=== PATIENT | male | born 1980 | race Caucasian/White ===

== ENCOUNTER 2023-12-30 12:57 | Outpatient (CLI) | payer BC, SELFPAY | END 2023-12-30 12:58 | disposition home or self-care (01) | LOC: AMB 01-13 02:50 | PROVIDERS: PCP Family Medicine; Visit Provider Family Medicine | DX: R41.82 Altered mental status, unspecified (principal); F10.129 Alcohol abuse with intoxication, unspecified | CPT/HCPCS: A0425; A0429 ==

== ENCOUNTER 2023-12-30 13:33 | Emergency (ER) | payer BC, SELFPAY ==
[2023-12-30] VITALS (18 sets, daily range): BP systolic 155–158; BP diastolic 69–109; PULSE 87–114; RESP 18–28; O2SAT 86–99; BMI 38.0
[2023-12-30 14:06] LABS: Lactate* 3.9 mmol/L (0.5-1.9)
[2023-12-30 14:07] LABS: Basophils Absolute Auto 0.05 K/uL (0.00-0.30); Basophils Percent Auto 0.7 % (0.0-3.0); Eosinophils Absolute Auto 0.14 K/uL (0.00-0.50); Eosinophils Percent Auto 2.1 % (0.0-7.0); Hematocrit* 42.3 % (37.0-53.0); Hemoglobin* 14.3 gm/dL (13.5-17.5); Immature Granulocytes Abs Auto 0.02 K/uL (0.00-0.30); Immature Granulocytes Pct Auto 0.3 %; Lymphocytes Absolute Auto 2.31 K/uL (0.90-2.90); Mean Corpuscular HGB Conc 34 gm/dL (32-36); Mean Corpuscular Hemoglobin 29 pg (26-34); Mean Corpuscular Volume 85 fL (80-100); Monocytes Percent Auto 5.4 % (0.0-11.0); Neutrophils Absolute Auto 3.91 K/uL (1.7-7.0); Neutrophils Percent Auto 57.5 % (42.0-72.0); Platelet Count* 182 K/uL (140-440); RDW Coefficient of Variation % 13.7 % (11.5-15.5); Red Blood Count* 4.97 m/uL (4.30-5.90)
[2023-12-30 14:14] LABS: Slide Review Reflex No
[2023-12-30] MEDS: LORazepam 2 MG/ML inj 1 MG IVP (14:17)
--- NOTE | 2023-12-30 14:23 | ED_ITS ---
HPI - General Adult General Chief complaint: Altered Mental Status Stated complaint: ETOH Time Seen by Provider: 12/30/23 13:42 Source: patient, family and EMS Mode of arrival: EMS Limitations: altered mental status History of Present Illness HPI narrative: The patient is a 43-year-old male with a history of alcohol use disorder presenting today with acute alcohol intoxication after he was found unconscious on his front lawn. Neighbors called 911. According to EMS they had a difficult time waking him up and once he was awake he had a difficult time ambulating. He has been combative and arrives to the emergency room in 4 point restraints. Past medical history is significant for alcohol use disorder, narcotic use disorder, anxiety, depression, obesity, gout, hyperlipidemia. He has no known drug allergies. Patient is . According to his they have been going through his alcohol use disorder for the last 6 years he was in [facility] for the last 10 months and has been home for 24 days. states that he has also been drinking Kratom - unclear how much she has been drinking per day. Patient and both deny him ever having any withdrawal seizures or DTs. The patient tells me that he ?fucked up?. He denies being in pain. He states that he had ?a little bit to drink this morning?. He cannot quantify what that means. Related Data Home Medications ?Medication ?Instructions ?Recorded ?Confirmed buspirone 15 mg tablet 15 mg PO BID 12/09/21 12/09/21 paroxetine HCl 20 mg tablet 20 mg PO .Bedtime 12/09/21 12/09/21 Previous Rx's ?Medication ?Instructions ?Recorded allopurinol 300 mg tablet 300 mg PO DAILY #90 tabs 12/09/21 buspirone 30 mg tablet 30 mg PO BID #180 tabs 12/09/21 naltrexone 50 mg tablet 50 mg PO QDAY #90 tabs 12/09/21 paroxetine HCl 40 mg tablet 40 mg PO QDAY #90 tabs 12/09/21 indomethacin 50 mg capsule 50 mg PO TID PRN gout #30 caps 01/03/23 Allergies Allergy/AdvReac Type Severity Reaction Status Date / Time No Known Allergy Allergy Unknown unknown Uncoded 12/09/21 08:53 Review of Systems Status of ROS: Reports: 6 or more systems reviewed and unremarkable except as noted in History and below [facility] Medical History Narcotic abuse ?F11.10 - Opioid abuse, uncomplicated (ICD-10) Surgical History Status post appendectomy ?Z90.49 - Acquired absence of other specified parts of digestive tract (ICD- 10) Family History Other Diabetes Social History Smoking Status: Current some day smoker How often do you have a drink containing alcohol: 4 or more times a week AUDIT-C Alcohol total score: 4 Exam Narrative: Exam Narrative: Obese patient, somewhat uncooperative but he can be coaxed into cooperation intermittently and for short amount of time. He is clearly intoxicated. His speech is slurred. Eyes are glassy. The patient sexually inappropriate calling the female staff ?hot? and trying to grab their buttocks. Patient's clothes are covered in grass. HEENT: Normocephalic atraumatic. Pupils are sluggish to respond. Extraocular muscles are intact. Conjunctivae are moist without any icterus noted. Moist mucous membranes. Posterior pharynx is normal. Neck is soft. Cardiovascular: Heart is regular rate and rhythm S1 and S2 are present without any murmurs. Lungs: Clear to auscultation bilaterally no wheezes rhonchi or rales are appreciated. Patient takes deep breaths without any discomfort. Abdomen: Soft and nontender nondistended with normal bowel sounds. Difficult to assess for organomegaly secondary to body habitus. Extremities: Bilateral lower extremities are without edema. Skin: Well perfused , warm and dry. Const: Vital Signs, click to edit/add: Vital Signs - 24 hr 12/30/23 13:45 12/30/23 15:23 12/30/23 15:25 Pulse Rate [Left P ulse Oximeter] 87 112 H Respiratory Rate 22 28 H Blood Pressure [Le ft Upper Arm] 158/69 H Pulse Oximetry 92 90 90 Oxygen Delivery Me thod Room Air OxyMask Room Air Oxygen Flow Rate 5 12/30/23 15:38 Pulse Rate [Left P ulse Oximeter] 114 H Respiratory Rate 26 H Blood Pressure [Le ft Upper Arm] Pulse Oximetry 93 Oxygen Delivery Me thod OxyMask Oxygen Flow Rate 5 Course Course ED Course: Patient received a mg of IV Ativan this did not change his behavior. Zyprexa 5 mg IV was also given. 0.5 L of normal saline was started. Labs were drawn: Blood alcohol level is 0.38. Urine drug screen is negative. CBC is normal. Chemistries are unremarkable. Glucose is elevated at 253. Lactate elevated at 3.9 LFTs slightly elevated. Normal troponin and CRP. UA with 1+ glucose. COVID influenza negative Another L of normal saline was started. Patient asleep with above treatment. He will detox for a while in the emergency department and then likely transfer to proper detox versus home. Care transferred to oncoming physician at this time. Vital Signs Vital signs: Initial Vital Signs Pulse Rate 87 12/30/23 13:45 Pulse Rhythm Regular 12/30/23 13:45 Pulse Strength 3+ Normal 12/30/23 13:45 Respiratory Rate 22 12/30/23 13:45 Blood Pressure 158/69 H 12/30/23 13:45 Blood Pressure Mean 98 12/30/23 13:45 Blood Pressure Position Semi-Fowlers 12/30/23 13:45 Pulse Oximetry 92 12/30/23 13:45 Oxygen Delivery Method Room Air 12/30/23 13:45 Vital Signs Pulse Rate 87 12/30/23 13:45 Respiratory Rate 22 12/30/23 13:45 Blood Pressure 158/69 H 12/30/23 13:45 Pulse Oximetry 92 12/30/23 13:45 Oxygen Delivery Method Room Air 12/30/23 13:45 Pulse Rate 87 12/30/23 20:45 Respiratory Rate 18 12/30/23 20:45 Blood Pressure 155/109 H 12/30/23 20:45 Pulse Oximetry 97 12/30/23 20:45 Oxygen Delivery Method Room Air 12/30/23 19:05 Oxygen Flow Rate 5 12/30/23 15:38 Medications Administered Medications: Discontinued Medications Generic Name Dose Route Start Last Admin Trade Name Freq PRN Reason Stop Dose Admin Sodium Chloride 500 mls @ 500 mls/hr 12/30/23 13:42 12/30/23 15:37 0.9 % Sodium Chloride 500 Ml IV 12/30/23 14:41 Infused .Q1H ONE Infusion Sodium Chloride 1,000 mls @ 1,000 mls/hr 12/30/23 15:15 12/30/23 16:15 0.9 % Sodium Chloride 1000 Ml IV 12/30/23 16:14 Infused .Q1H MALCOLM Infusion Lorazepam 1 mg 12/30/23 13:42 12/30/23 14:17 Lorazepam 2 Mg/Ml Inj IVP 1 mg Q1H PRN Administration Olanzapine 5 mg 12/30/23 14:33 12/30/23 14:43 Olanzapine 5 Mg/Ml Inj IVP 12/30/23 14:34 5 mg ONCE ONE Administration Medical Decision Making Lab Data Labs: Lab Results 12/30/23 12/30/23 12/30/23 Range/Units 14:00 14:30 15:05 WBC 6.80 (4.50-11.00) K/uL RBC 4.97 (4.30-5.90) m/uL Hgb 14.3 (13.5-17.5) gm/dL Hct 42.3 (37.0-53.0) % MCV 85 (80-100) fL MCH 29 (26-34) pg MCHC 34 (32-36) gm/dL RDW Coeff of Karen 13.7 (11.5-15.5) % Plt Count 182 (140-440) K/uL Neut % (Auto) 57.5 (42.0-72.0) % Lymph % (Auto) 34.0 (20-44) % [place] % (Auto) 5.4 (0.0-11.0) % Eos % (Auto) 2.1 (0.0-7.0) % Baso % (Auto) 0.7 (0.0-3.0) % Neut # (Auto) 3.91 (1.7-7.0) K/uL Lymph # (Auto) 2.31 (0.90-2.90) K/uL [place] # (Auto) 0.40 (0.00-0.90) K/UL Eos # (Auto) 0.14 (0.00-0.50) K/uL Baso # (Auto) 0.05 (0.00-0.30) K/uL Abs Immat Gran (auto) 0.02 (0.00-0.30) K/uL Imm/Tot Granulo (auto) 0.3 % Sodium 138 (135-149) mmol/L Potassium 3.8 (3.6-5.1) mmol/L Chloride 105 (96-114) mmol/L Carbon Dioxide 19 L (20-32) mmol/L Anion Gap 14 (7-15) mEq/L BUN 13 (5-24) mg/dL Creatinine 0.8 (0.5-1.5) mg/dL Estimated Creat Clear 129.33 Estimated GFR 112 ml/min Glucose 253 H (60-115) mg/dL Lactate 3.9 H (0.5-1.9) mmol/L Calcium 8.6 (8.4-10.6) mg/dL Magnesium 2.3 (1.5-2.6) mg/dL Total Bilirubin 0.4 (0.1-1.5) mg/dL Direct Bilirubin 0.1 (0.0-0.5) mg/dL AST 63 H (12-35) U/L ALT 79 H (4-50) U/L Alkaline Phosphatase 77 (40-150) U/L Troponin I < 0.01 L (0.01-0.04) ng/mL C-Reactive Protein < 0.5 L (0.5-1.0) mg/dL Total Protein 7.5 (6.0-8.3) g/dL Albumin 4.6 (3.3-5.0) g/dL Urine Color Yellow (Yellow) Urine Appearance Clear (Clear) Urine pH 5.5 (5.0-8.5) Ur Specific [place] <= 1.005 (1.000-1.030) Urine Protein Negative (Negative) Urine Glucose (UA) 1+ A (Negative) Urine Ketones Negative (Negative) Urine Blood Negative (Negative) Urine Nitrite Negative (Negative) Urine Bilirubin Negative (Negative) Urine Urobilinogen 0.2 (0.2-1.0) Ur Leukocyte Esterase Negative (Negative) Urine RBC 0-2 (0-2) Urine WBC 0-2 (0-5) Ur Squamous Epith Cells Few (None-Few) Urine Bacteria None (None) Urine Opiates Screen Negative (Negative) Ur Oxycodone Screen Negative (Negative) Urine Methadone Screen Negative (Negative) Acetaminophen < 10.0 L (10.0-30.0) ug/mL Ur Barbiturates Screen Negative (Negative) U Tricyclic Antidepress Negative (Negative) Ur Phencyclidine Scrn Negative (Negative) Ur Amphetamines Screen Negative (Negative) U Methamphetamines Scrn Negative (Negative) U Benzodiazepines Scrn Negative (Negative) Urine Cocaine Screen Negative (Negative) U Marijuana (THC) Screen Negative (Negative) Ur Drug Screen Comment See Note Ethyl Alcohol 0.38 H* (0.01-0.03) % SARS-CoV-2 (PCR) Negative SARS-CoV-2 (Negative) Influenza Type A (PCR) Negative PCR FLU A (Negative) Influenza Type B (PCR) Negative PCR FLU B (Negative) Discharge Plan Discharge Clinical Impression: Acute alcohol intoxication, Alcohol use disorder, Hyperglycemia Additional Instructions: Your blood sugar was elevated today. This likely means that you have developed diabetes. You will need to follow-up with your primary care provider this week to have a blood sugar rechecked and to probably start on medications. Prescriptions: No Action buspirone 15 mg tablet 15 mg PO BID paroxetine HCl 20 mg tablet 20 mg PO .Bedtime paroxetine HCl 40 mg tablet 40 mg PO QDAY Qty: 90 3RF buspirone 30 mg tablet 30 mg PO BID Qty: 180 2RF naltrexone 50 mg tablet 50 mg PO QDAY Qty: 90 3RF allopurinol 300 mg tablet 300 mg PO DAILY Qty: 90 3RF indomethacin 50 mg capsule 50 mg PO TID PRN (Reason: gout) Qty: 30 0RF Follow Up/Referrals: Anibal Vargas MD [Primary Care Provider] -
[2023-12-30 14:26] LABS: Albumin* 4.6 g/dL (3.3-5.0)
[2023-12-30 14:27] LABS: Chloride* 105 mmol/L (96-114); Sodium* 138 mmol/L (135-149)
[2023-12-30 14:28] LABS: Potassium* 3.8 mmol/L (3.6-5.1)
[2023-12-30 14:29] LABS: Creatinine* 0.8 mg/dL (0.5-1.5); Est. Creatinine Clearance* 129.33; Estimated Glomerular Filt Rate 112 ml/min
[2023-12-30 14:30] LABS: Alanine Aminotransferase* 79 U/L (4-50); Alkaline Phosphatase* 77 U/L (40-150); Anion Gap 14 mEq/L (7-15); Aspartate Amino Transferase* 63 U/L (12-35); Bilirubin Direct* 0.1 mg/dL (0.0-0.5); Bilirubin Total* 0.4 mg/dL (0.1-1.5); Blood Urea Nitrogen* 13 mg/dL (5-24); Calcium* 8.6 mg/dL (8.4-10.6); Carbon Dioxide* 19 mmol/L (20-32); Glucose* 253 mg/dL (60-115); Total Protein* 7.5 g/dL (6.0-8.3)
[2023-12-30 14:31] LABS: Magnesium* 2.3 mg/dL (1.5-2.6)
[2023-12-30 14:42] LABS: Appearance Urine Clear (Clear); Bilirubin Urine Negative (Negative); Blood Urine Negative (Negative); Color Urine Yellow (Yellow); Glucose Urine 1+ (Negative); Ketones Urine Negative (Negative); Leukocyte Esterase Urine Negative (Negative); Nitrite Urine Negative (Negative); Protein Urine Negative (Negative); Specific Gravity Urine <= 1.005 (1.000-1.030); Urobilinogen Urine 0.2 (0.2-1.0); pH Urine 5.5 (5.0-8.5)
[2023-12-30] MEDS: OLANZapine 5 MG/ML inj IVP (14:43)
[2023-12-30 14:47] LABS: Acetaminophen* < 10.0 ug/mL (10.0-30.0); C Reactive Protein* < 0.5 mg/dL (0.5-1.0); Troponin I* < 0.01 ng/mL (0.01-0.04)
[2023-12-30 14:48] LABS: Ethanol* 0.38 % (0.01-0.03)
[2023-12-30 14:49] LABS: Amphetamine Screen Urine Negative (Negative); Barbiturate Screen Urine Negative (Negative); Benzodiazepines Screen Urine Negative (Negative); Cannabinoid Screen Urine Negative (Negative); Cocaine Screen Urine Negative (Negative); Methadone Screen Urine Negative (Negative); Methamphetamines Screen Urine Negative (Negative); Opiate Screen Urine Negative (Negative); Oxycodone Screen Urine Negative (Negative); Phencyclidine Screen Urine Negative (Negative); Tricyclic Antidepressant Urine Negative (Negative)
[2023-12-30 14:58] LABS: RBC Urine 0-2 (0-2); Squamous Epithelial Cell Urine Few (None-Few); WBC Urine 0-2 (0-5)
[2023-12-30] MEDS: 0.9 % SODIUM CHLORIDE 500 ML 500 ML IV (15:21)
[2023-12-30] MEDS: 0.9 % SODIUM CHLORIDE 1000 ml 1,000 ML IV (15:37)
[2023-12-30 15:50] LABS: PCR FLU A Negative PCR FLU A (Negative); PCR FLU B Negative PCR FLU B (Negative); SARS PCR* Negative SARS-CoV-2 (Negative)
--- NOTE | 2023-12-30 20:36 | ED.NURSE ---
This nurse walked pt to the bathroom, pt coherent and talking in complete sentences. Pt's called and she is coming to the hospital to pick him up and take him home. Pt will be released to 's care at home. Pt's IV was removed and pt is waiting to be picked up at this time. Pt did tell this nurse that he is not going to fucking detox. Detox was offered again, but pt states I'm not going. This nurse informed doctor he is refusing detox at this time.
== END 2023-12-30 20:45 | disposition home or self-care (01) ==
LOC: ED 14:08
PROVIDERS: Emergency Provider Family Medicine; PCP Family Medicine
DX: F10.129 Alcohol abuse with intoxication, unspecified (principal); R73.9 Hyperglycemia, unspecified
CPT/HCPCS: 36415; 80048; 80076; 80143; 80306; 81001; 82077; 83605; 83735; 84484; 85025; 86140; 87637; 93005; 94761; 96374; 99284; 99285; J2060; J7030

== ENCOUNTER 2024-11-09 17:36 | Emergency (ER) | payer BC, SELFPAY ==
--- OUTSIDE RECORDS SUMMARY | 2024-11-09 17:37 | XMS_ITS | Clinical Summary ---
Author Organization [facility] Address [address] [place] [id number] Care Team Providers Care Assembler Seat Name Role Phone Anibal Vargas MD Primary Care Provider [phone] Allergies No known active allergies Medications ketoconazole 2% shampoo (NIZORAL) 2 % shampoo APPLY TO THE AFFECTED AREA(S), LATHER, LEAVE IN PLACE FOR 5 MINUTES, AND THEN RINSE OFF WITH WATER BY TOPICAL ROUTE ONCE DAILY 0 07/10/2018 Active PARoxetine (PAXIL) 20 mg tablet Take 1 tablet by mouth every morning. 0 02/10/2019 Active atorvastatin (LIPITOR) 20 mg tablet Take 1 tablet by mouth at bedtime. 0 02/10/2019 Active doxylamine (UNISOM) 25 mg tabletIndicatio ns:Insomnia, idiopathic Take 2 tablets by mouth at bedtime if needed for Sleep. 60 tablet 02/10/2019 Active ibuprofen (ADVIL; MOTRIN) 800 mg tabletIndicatio ns:Acute pain of right knee Take 1 tablet by mouth 3 times daily if needed. 30 tablet 02/17/2019 Active Active Problems Problem Noted Date Diagnosed Date Alcoholism Hypercholesteremia Depression Resolved Problems Problem Noted Date Diagnosed Date Resolved Date Chemical dependency 02/10/2019 02/11/20 19 Immunizations Immunization Administration Dates Next Due DTaP 07/05/1982,1979,1979 ,1979 MMR 08/03/1981 Polio Virus, Unspecified 07/05/1982,1979,0 1979 Tdap 07/24/2014 Family History Medical History Relation Name Comments Alcoholism Father Alcoholism Mother Relation Name Status Comments Father Mother Social History Tobacco Use Types Packs/Day Years Used Date Smoking Tobacco: Every Day Cigarettes Started: 03/12/1998 Smokeless Tobacco: Never Tobacco Cessation:Ready to Q uit: No; Counseling Given: Yes Alcohol Use Standard Drinks/Week Comments Not Currently 0 (1 standard drink = 0.6 oz pure alcohol) History of alcoholism; last use 01/13/2019 Sex and Gender Information Value Date Recorded Sex Assigned at Not on file Legal Sex Male 1:41 PM [employer] Gender Identity Not on file Sexual Orientation Not on file Occupation Industry Job Start Date Job End Date [employer] at a [employer] Not on file Not on file Not on file Obstetrics History Last Filed Vital Signs Vital Sign Reading Time Taken Comments Blood Pressure 114/78 02/17/2019 2:45 PM [employer] Pulse 84 02/17/2019 2:45 PM [employer] Temperature - - Respiratory Rate 16 02/17/2019 2:45 PM [employer] Oxygen Saturation 96% 02/10/2019 1:24 PM [employer] Inhaled Oxygen Concentration - - Weight 127.9 kg (282 lb) 02/17/2019 2:45 PM [employer] Height 177.8 cm (5' 10) 02/17/2019 2:45 PM [employer] Body Mass Index 40.46 02/17/2019 2:45 PM [employer] Plan of Treatment Health Maintenance Due Date Last Done Comments Depression screening for age 12+ 1991 HIV for age 15-65 1994 Hepatitis C screening for ag e 18-79 1997 Hepatitis B series for 19+ ( 1 of 3 - 19+ 3-dose series) 1998 BMI (ht and wt on same day) for age 18+ 02/18/2020 02/17/2019, 02/10/2019 COVID-19 vaccine series (2023- season) 2023 Colonoscopy through age 75 2024 Lipids for age 45-75 2024 Tetanus booster 07/24/2024 07/24/2014 Influenza Vaccine (#1) 2024 Pneumococcal series for age 6-49 Aged Out No longer eligible b ased on patient's age to complete this topic Insurance MEDICAID [facility] * Guarantor: [employer] Account Type Relation to Patient Date of Phone Billing Address [email or web address] Other [address] [place] [address] Care Teams Assembler Seat Relationship Specialty Start Date End Date Anibal Vargas MD PCP - General Family Practice 02/10/19
--- OUTSIDE RECORDS SUMMARY | 2024-11-09 17:38 | XMS_ITS | Clinical Summary ---
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 Try to take as soon as a gout flair starts, then take for one week. Take with food or milk. 60 Capsule 3 3 Active triamcinolone acetonide (Kenalog) 0.1 % creamIndication s:Skin irritation Apply topically two times a day. 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 TAKE 1 TABLET BY MOUTH ONCE DAILY 90 Tablet 2 4 Active Active Problems Problem Noted Date Diagnosed Date Class 3 severe obesity due t o excess calories without serious comorbidity with body mass index (BMI) of 40.0 to 44.9 in adult 07/20/2022 Type 2 diabetes mellitus wit hout complication, without long-term current use of insulin 06/26/2022 Seborrheic dermatitis of scalp 02/24/2022 Tobacco abuse, in remission 02/24/2022 Alcohol addiction 02/24/2022 Resolved Problems Problem Noted Date Diagnosed Date Resolved Date Weakness 2022 10/04/2022 Impaired mobility 2022 10/04/2022 Tear of medial meniscus of r ight knee, unspecified tear type, unspecified whether old or current tear, initial encounter 2022 0 10/04/2022 Chronic pain of right knee 03/10/2022 0 10/04/2022 Immunizations Immunization Administration Dates Next Due DTaP <7 years 07/05/1982,1979,1979 ,1979 Hepatitis A & B 04/10/2022,02/24/2022 Hepatitis B, Adult 02/16/2023 MMR 08/03/1981 Polio Unspecified Formulation 07/05/1982, 980,1979 Tdap (7 years and older) 07/24/2014 Surgical History Surgery Date Site/Laterality Comments APPENDECTOMY 1994 Medical History Medical History Date Comments Alcohol addiction (HCC) Anxiety disorder Seborrheic dermatitis Gout Tobacco use disorder Family History Medical History Relation Comments Addiction Brother Addiction Father Diabetes Maternal Grandfather Addiction Mother Diabetes Mother Addiction Sister Relation Status Comments Brother Father Maternal Grandfather Mother Sister Social History Tobacco Use Types Packs/Day Years Used Date Smoking Tobacco: Former Cigarettes Passive Smoke Exposure: Past Smokeless Tobacco: Never Tobacco Cessation:Counseling Given: Not Answered Alcohol Use Standard Drinks/Week Comments Not Currently 0 (1 standard drink = 0.6 oz pur e alcohol) History of alcohol addiction Overall Financial Resource Strain (CARDIA) Answe r Date Recorded How hard is it for you to pa y for the very basics like food, housing, medical care, and heating? Not hard at all 02/16/2023 PHQ-2 Answer Date Recorded PHQ-2 Total 0 03/10/2022 Hunger Vital Sign Answer Date Recorded Within the past 12 months, y ou worried that your food would run out before you got the money to buy more. Never true 02/17/20 23 Within the past 12 months, t he food you bought just didn't last and you didn't have money to get more. Never true 02/16/2023 PRAPARE - Transportation Answer Date Re corded In the past 12 months, has l ack of transportation kept you from medical appointments or from getting medications? No 10/2022 In the past 12 months, has l ack of transportation kept you from meetings, work, or from getting things needed for daily living? No 02/16/2023 [facility] [employer]) Answer Date Recorded How hard is it for you to pa y for the very basics like food, housing, medical care, and heating? 5 02/16/2023 Sex and Gender Information Value Date Recorded Sex Assigned at Not on file Legal Sex Male 2:01 PM [employer] Gender Identity Not on file Sexual Orientation Not on file Obstetrics History Last Filed Vital Signs Vital Sign Reading Time Taken Comments Blood Pressure 115/79 07/30/2023 9:27 AM CDT Pulse 80 07/30/2023 9:27 AM CDT Temperature 36.6 C (97.8 F) 07/30/2023 9:27 AM CDT Respiratory Rate 16 06/24/2023 2:30 PM CDT Oxygen Saturation 96% 07/30/2023 9:27 AM CDT Inhaled Oxygen Concentration - - Weight 148.3 kg (327 lb) 07/30/2023 9:27 AM CDT Height 177.8 cm (5' 10) 07/30/2023 9:27 AM CDT Body Mass Index 46.92 07/30/2023 9:27 AM CDT Plan of Treatment Health Maintenance Due Date Last Done Comments CT Colonography 1979 Cologuard 1979 Colonoscopy 1979 Colorectal Cancer Screening 1979 FIT/FOBT 1979 Sigmoidoscopy 1979 DIABETIC EYE EXAM 1997 Pneumococcal/PCV20 Vaccine: Pediatrics (2-5 yrs) and At-Risk Patients (6-49 yrs) (Standing Order) (1 of 2 - PCV) 1998 DIABETES HGB A1C Q6 MONTHS (Standing Order) 08/18/2023 02/16/2023, 06/26/2022, 02/21/2022 DIABETES MICROALBUMIN Q1 YEAR (Standing Order) 01/17/2024 02/16/2023 DIABETES SERUM CREATININE Q1 YEAR (Standing Order) 02/17/2024 02/16/2023, 10/13/2022, 10/13/2022, Additional history exists TETANUS (Standing Order) 07/24/2024 015, 07/05/1982, 1979, Additional history exists DIABETES LIPID PROFILE Q5 YEARS (Standing Order) 06/27/2027 06/26/2022 PERTUSSIS (Standing Order) Completed 07/24, 07/05/1982, 1979, Additional history exists Hepatitis B Vaccine (Standing Order) Completed 02/16/2023, 04/10/2022, 02/24/2022 HPV Vaccine (Standing Order) Aged Out No longer eligible based on patient's age to complete this topic Procedures Procedure Name Priority Date/Time Associated Diagnosis Comments MICROALBUMIN/CREATININ E RATIO, URINE Routine 02/16/2023 9:27 AM [employer] Type 2 diabetes mellitus without complication, without long-term current use of insulin (HCC) HEMOGLOBIN A1C Routine 02/16/2023 9:20 AM [employer] Type 2 diabetes mellitus without complication, without long-term current use of insulin (HCC) COMPREHENSIVE METABOLIC PANEL Routine 02/16/2023 9:20 AM [employer] Class 3 severe obesity due to excess calories with serious comorbidity and body mass index (BMI) of 40.0 to 44.9 in adult (HCC) LIPID PROFILE Routine 06/26/2022 8:51 AM CDT Weight gain from Last 3 Months or Most Recently Relevant to Health Maintenance Results * MICROALBUMIN/CREATININE RATIO, URINE (02/16/2023 9:27 AM [facility]) Urine Microalbumin/Crea tinine Ratio <5 0 - 29 02/16/2023 12:41 PM [facility] Comment:If the ALB/CREAT rat io has a < result, the urine microalbumin was below the linearity of the analyzer before the calculation was performed. This situation represents a normal alb/creat ratio. Please contact lab with questions on the linear range. Urine Creatinine, Random 95 mg/dL 02/16/2023 12:41 PM [facility] Urine Microalbumin <0.5 mg/dL 02/16/2023 12:41 PM [facility] Urine VOIDED URINE SPECIMEN / Unknown Non-blood collection / Unknown 02/16/2023 9:27 AM [facility] [facility] 02/16/2023 9:27 AM [facility] Praveena Miner MD EC URINE ORDERABLES Final Result [facility] [address] [place] [address], [facility] * (ABNORMAL) COMPREHENSIVE METABOLIC PANEL (02/16/2023 9:20 AM [facility]) Sodium 136 134 - 143 mEq/L 02/16/2023 12:42 PM [facility] Potassium 4.4 3.4 - 5.1 mEq/L 02/16/2023 12:42 PM [facility] Chloride 104 99 - 110 mEq/L 02/16/2023 12:42 PM [facility] Carbon Dioxide 24 19 - 29 mEq/L 02/16/2023 12:42 PM [facility] Anion Gap 8.0 3.0 - 15.0 mEq/L 02/16/2023 12:42 PM [facility] Blood Urea Nitrogen 20 5 - 24 mg/dL 02/16/2023 12:42 PM [facility] Creatinine 0.93 0.70 - 1.20 mg/dL 02/16/2023 12:42 PM [facility] Glomerular Filtration Rate 104 >60 mL/min/1. 73 m*2 02/16/2023 12:42 PM [facility] Comment:Risk of cardiovascul ar disease increases when GFR is abnormal; persistently reduced GFR values are a specific indication of CKD. This calculation uses CKD- EPI 2020 equation without adjustment for race; it has not been validated in women. Calcium 9.9 8.4 - 10.5 mg/dL 02/16/2023 12:42 PM [facility] Glucose 111(H) 70 - 99 mg/dL 02/16/2023 12:42 PM [facility] Protein, Total 8.0 6.0 - 8.0 g/dL 02/16/2023 12:42 PM [facility] Albumin 4.0 3.5 - 5.0 g/dL 02/16/2023 12:42 PM [facility] Alkaline Phosphatase 67 40 - 150 IU/L 02/16/2023 12:42 PM [facility] Aspartate Aminotransferase 64(H) 10 - 40 IU/L 02/16/2023 12:42 PM [facility] Alanine Aminotransferase 65(H) 6 - 40 IU/L 02/16/2023 12:42 PM [facility] Bilirubin, Total 0.3 0.2 - 1.2 mg/dL 02/16/2023 12:42 PM [facility] Blood BLOOD SPECIMEN / Unknown Venipuncture / Unknown 02/16/2023 9:20 AM [facility] [employer] [facility] 02/16/2023 9:20 AM [facility] Narrative [facility] - 02/16/2023 12:42 PM [facility] Current ADA criteria for Glucose: Normal: 70-99 mg/dL Impaired Fasting Glucose: 100-125 mg/dL Diabetes Mellitus: at or above 126 mg/dL The diagnosis of diabetes must be confirmed on a subsequent day by measuring Fasting Plasma Glucose, 2-hr PG or random plasma glucose (if symptoms are present). Praveena Miner MD EC CHEMISTRY ORDERABLES Fi nal Result Performing Organization Address [facility] de Phone Number [facility] [address] * (ABNORMAL) HEMOGLOBIN A1C (02/16/2023 9:20 AM [facility]) [facility] Hemoglobin A1c 5.7(H) 4.0 - 5.6 % 02/16/2023 9:40 AM [facility] Estimated Average Glucose 117 mg/dL 02/16/2023 9:40 AM [facility] Blood BLOOD SPECIMEN / Unknown Venipuncture / Unknown 02/16/2023 9:20 AM [facility] [employer] [facility] 02/16/2023 9:20 AM [facility] Narrative [facility] - 02/16/2023 9:40 AM [facility] HGA1C Reference Ranges >= 6.5 Diabetes* 5.7-6.4 Impaired glucose tolerance <5.7 Normal *In the absence of unequivocal hyperglycemia, results should be confirmed by repeat testing for the diagnosis of diabetes. [place] [employer] 2018 Praveena Miner MD EC CHEMISTRY ORDERABLES AB N Final Result Performing Organization Address [facility] Co de Phone Number [facility] [address] [place] [address], [facility] [phone] * (ABNORMAL) LIPID PANEL (06/26/2022 8:51 AM CDT) Cholesterol 193 0 - 200 mg/dL 06/26/2022 12:49 PM CDT [facility] HDL Cholesterol 35(L) >40 mg/dL 12:49 PM CDT [facility] Non-HDL Cholesterol 158(H) 0 - 130 mg/dL 06/26/2022 12:49 PM CDT [facility] Triglycerides 168 <175 mg/dL 06/26/2022 12:49 PM CDT [facility] LDL Cholesterol, Calculated 124(H) 0 - 100 mg/dL 06/26/2022 12:49 PM CDT [facility] Blood BLOOD SPECIMEN / Unknown Venipuncture / Unknown 06/26/2022 8:51 AM CDT 06/26/2022 8:51 AM CDT Narrative [facility] - 06/26/2022 12:49 PM CDT Total Cholesterol Reference Ranges Optimal: <200 mg/dL Borderline High: 200-239 mg/dL High: > or = 240 mg/dL Triglycerides Reference Ranges Optimal: 10-200 mg/dL Borderline High: 150-200 mg/dL High: 201-499 mg/dL Very High: > or = 500 mg/dL LDL Cholesterol Reference Ranges Optimal: <100 mg/dL Near Optimal: 100-129 mg/dL Borderline High: 130-159 mg/dL High: 160-189 mg/dL Very High: > or = 190 mg/dL us Felipa Butler MD EC CHEMISTRY ORDERABLES ABN Final Result Performing Organization Address [facility] Co de Phone Number [facility] [address] [place], [place] [address] from Last 3 Months or Most Recently Relevant to Health Maintenance [place] [address] Care Teams Safety Lead Relationship Specialty Start Date End Date Ioana Pringle MD [address] [place] [phone] PCP - General Family Medicine 09/09/24
[2024-11-09 17:49] VITALS: BP 127/81; PULSE 76; RESP 16; TEMP 36.1; O2SAT 99; BMI 38.4
--- NOTE | 2024-11-09 18:23 | ED.MALEGU ---
HPI - Male Genitourinary General Time Seen by Provider: 18:23 Date Seen: 11/09/24 Chief complaint: Urogenital Problems, Male Stated complaint: Nuts Hurt Time Seen by Provider: 11/09/24 18:17 Source: patient and RN notes reviewed Mode of arrival: ambulatory Limitations: no limitations History of Present Illness HPI Narrative: This 44-year-old male is coming in with complaint of right testicular pain. He feels like it is swollen. He is getting pain going into the groin into the low abdomen. It started yesterday. No urinary symptoms, no hematuria. He has had no fevers or chills. He has had no prior history of testicular issues. He states sometimes he would have some pain but would go away. At 1 point he states the left 1 felt like was lying sideways but then it flipped back down. He feels like this is making him feel more gassy. Here with his , no history of sexually transmitted infections ever. MD Complaint: testicle pain and testicle swelling Related Data Previous Rx's ?Medication ?Instructions ?Recorded allopurinol 300 mg tablet 300 mg PO DAILY #90 tabs 12/09/21 indomethacin 50 mg capsule 50 mg PO TID PRN gout #30 caps 01/03/23 levofloxacin 500 mg tablet 500 mg PO DAILY #9 tabs 11/09/24 oxycodone 5 mg tablet 5 mg PO Q6H PRN pain #6 tabs 11/09/24 Allergies Allergy/AdvReac Type Severity Reaction Status Date / Time No Known Allergy Allergy Unknown unknown Uncoded 12/09/21 08:53 Review of Systems Narrative: As per HPI. PFSH PFSH Medical History Narcotic abuse ?F11.10 - Opioid abuse, uncomplicated (ICD-10) Surgical History Status post appendectomy ?Z90.49 - Acquired absence of other specified parts of digestive tract (ICD-10) Family History Other Diabetes Social History Smoking Status: Current some day smoker How often do you have a drink containing alcohol: 4 or more times a week AUDIT-C Alcohol total score: 4 Exam Const: Vital Signs, click to edit/add: Vital Signs - 24 hr 11/09/24 17:49 Temperature 97.0 F L Pulse Rate [Pulse Oximeter] 76 Respiratory Rate 16 Blood Pressure [Ri ght Upper Arm] 127/81 Pulse Oximetry 99 Oxygen Delivery Me thod Room Air This 44-year-old male is alert, interactive, no apparent distress. Sclera clear, able speak in complete sentences. Lungs clear, good air entry, no wheeze or crackles. CV regular rate and rhythm, no murmur. Abdomen is obese soft, difficult to assess any true organomegaly or masses but do not feel any the best of my ability. No rebound or guarding. No inguinal masses or bulging noted. Right testicle visualized when standing is higher riding than the left. Left is nontender, epididymis feels normal his right testicle seems to have normal architecture when compared to the left but the epididymis seems swollen posteriorly, quite tender. He has generalized tenderness when I palpate but definitely seems to be more prominent over the epididymal area. Documenting provider has reviewed patient's vital signs: yes Course Course ED Course: Will have this patient get 30 mg IM Toradol. Will obtain urinalysis and basic lab work. I have ordered a scrotal ultrasound. Clinically suspect epididymitis but need ultrasound for further evaluation. Seems to be more swelling over the epididymis rather than the testicle itself. Will get the ultrasound to make sure that this is not having any concerning changes for torsion. Ultrasound will also look at the rest of the architecture for full differentiation of epididymitis versus orchitis. Reevaluation(s) Time of Reevaluation #1: 20:46 Reevaluation #1: Was going in to see the patient but he was walking gingerly into the restroom. Went back in as soon as he was done in the restroom. We reviewed that his ultrasound and labs are reassuring. Clinically he had significant tenderness over his right epididymis, he is most definitely having pain in the testicle with walking. Toradol really did not help him significantly, maybe a bit. There is no oxycodone in [facility] right now. We will give him a 5 mg tablet of oxycodone now, dose of levofloxacin here. There is no concern for STI based on my discussion with them. Thus, will treat for epididymitis with levofloxacin. Confirmed that [facility] in [place] will be open tomorrow for him. Vital Signs Vital signs: Initial Vital Signs Temperature 97.0 F L 11/09/24 17:49 Temperature Source Temporal Artery Scan 11/09/24 17:49 Pulse Rate 76 11/09/24 17:49 Respiratory Rate 16 11/09/24 17:49 Blood Pressure 127/81 11/09/24 17:49 Blood Pressure Mean 96 11/09/24 17:49 Pulse Oximetry 99 11/09/24 17:49 Oxygen Delivery Method Room Air 11/09/24 17:49 Vital Signs Temperature 97.0 F L 11/09/24 17:49 Pulse Rate 76 11/09/24 17:49 Respiratory Rate 16 11/09/24 17:49 Blood Pressure 127/81 11/09/24 17:49 Pulse Oximetry 99 11/09/24 17:49 Oxygen Delivery Method Room Air 11/09/24 17:49 Temperature 97.0 F L 11/09/24 17:49 Pulse Rate 76 11/09/24 17:49 Respiratory Rate 16 11/09/24 17:49 Blood Pressure 127/81 11/09/24 17:49 Pulse Oximetry 99 11/09/24 17:49 Oxygen Delivery Method Room Air 11/09/24 17:49 Medications Administered Medications: Generic Name Dose Route Start Last Admin Trade Name Freq PRN Reason Stop Dose Admin Levofloxacin 500 mg 11/09/24 20:55 11/09/24 21:03 Levofloxacin 500 Mg Tablet PO 11/09/24 20:56 500 mg ONCE ONE Administration Oxycodone HCl 5 mg 11/09/24 20:55 11/09/24 21:03 Oxycodone 5 Mg Tablet PO 11/09/24 20:56 5 mg ONCE ONE Administration Discontinued Medications Generic Name Dose Route Start Last Admin Trade Name Freq PRN Reason Stop Dose Admin Ketorolac Tromethamine 15 mg 11/09/24 18:29 11/09/24 18:52 Ketorolac 15 Mg/Ml Inj IVP 11/09/24 18:30 Not Given ONCE ONE Ketorolac Tromethamine 30 mg 11/09/24 18:37 11/09/24 18:43 Ketorolac 30 Mg/Ml Inj IM 11/09/24 18:38 30 mg ONCE ONE Administration MDM - Male Genitourinary Lab Data Attestation: I reviewed the patient's lab results. Labs: Lab Results 11/09/24 11/09/24 Range/Units 18:48 18:57 WBC 9.76 (4.50-11.00) K/uL RBC 4.96 (4.30-5.90) m/uL Hgb 14.5 (13.5-17.5) gm/dL Hct 42.3 (37.0-53.0) % MCV 85 (80-100) fL MCH 29 (26-34) pg MCHC 34 (32-36) gm/dL RDW Coeff of Karen 13.2 (11.5-15.5) % Plt Count 188 (140-440) K/uL Neut % (Auto) 58.1 (42.0-72.0) % Lymph % (Auto) 30.8 (20-44) % Merrick % (Auto) 7.9 (0.0-11.0) % Eos % (Auto) 2.2 (0.0-7.0) % Baso % (Auto) 0.7 (0.0-3.0) % Neut # (Auto) 5.67 (1.7-7.0) K/uL Lymph # (Auto) 3.01 H (0.90-2.90) K/uL Merrick # (Auto) 0.80 (0.00-0.90) K/UL Eos # (Auto) 0.21 (0.00-0.50) K/uL Baso # (Auto) 0.07 (0.00-0.30) K/uL Abs Immat Gran (auto) 0.03 (0.00-0.30) K/uL Imm/Tot Granulo (auto) 0.3 % Lactate 1.3 (0.5-1.9) mmol/L Urine Color Yellow (Yellow) Urine Appearance Clear (Clear) Urine pH 6.0 (5.0-8.5) Ur Specific [place] 1.020 (1.000-1.030) Urine Protein Negative (Negative) Urine Glucose (UA) Negative (Negative) Urine Ketones Trace A (Negative) Urine Blood Negative (Negative) Urine Nitrite Negative (Negative) Urine Bilirubin Negative (Negative) Urine Urobilinogen 0.2 (0.2-1.0) Ur Leukocyte Esterase Negative (Negative) Urine RBC 0-2 (0-2) Urine WBC 0-2 (0-5) Ur Squamous Epith Cells None (None-Few) Urine Bacteria None (None) Imaging Data US scrotum: Attestation: I have reviewed the pertinent imaging results. Radiologist's impression: Patient: ALYSA LUCAS Facility:?[facility] Patient ID:?[id number] Site Patient ID:?[id number]. Site :?1980 Study:?US-Testicle Bilateral With Duplex Doppler-11/09/2024 8:02:29 PM Ordering Physician:Matthieu Escobedo Final Report: Indication: Testicular pain. Technique: Ultrasound of the scrotum and contents. Sonographic richardson-scale images were obtained with spectral and color Doppler waveform and spectral waveform analysis of the testicles. Comparison: None. Findings: Both testicles are normal in size and echotexture. No masses. No suspicious calcifications. Arterial and venous color Doppler blood flow and spectral waveforms are present in both testicles. Epididymis: Tiny 5 millimeter left epididymal head cyst. Adjacent tiny 3 millimeter epididymal appendix. Normal blood flow. Other: Small left-sided hydrocele. No sign of varicocele. Scrotal wall is normal. Impression: Small left-sided hydrocele, likely reactive. Otherwise, no sign of torsion or inflammation. Dictated by Siva Fernando MD @ 11/09/2024 8:17:05 PM (Electronic Signature) Discharge Plan Discharge Clinical Impression: Pain in right testicle Patient Disposition: Home, Self-Care Condition: Stable Instructions: Epididymitis (ED), Testicle Pain (ED) Additional Instructions: Despite ultrasound being normal and labs being normal, you do have significant pain in the epididymis of the right side. We are going to treat for epididymitis and cover with antibiotics. I will send a few tablets of oxycodone in for you. Otherwise use scrotal support as tolerated, Tylenol and ibuprofen per bottle directions. If treatment with antibiotics is not improving your situation, have worsening symptoms or develop new concerns, please seek re-evaluation. If you have ongoing symptoms but not worsening, recommend follow up in clinic and seeking urology consultation. Activity Level: Activity as Tolerated Prescriptions: New levofloxacin 500 mg tablet 500 mg PO DAILY Qty: 9 0RF oxycodone 5 mg tablet 5 mg PO Q6H PRN (Reason: pain) Qty: 6 0RF No Action allopurinol 300 mg tablet 300 mg PO DAILY Qty: 90 3RF indomethacin 50 mg capsule 50 mg PO TID PRN (Reason: gout) Qty: 30 0RF Follow Up/Referrals: Anibal Vargas MD [Primary Care Provider, Family Practice] Stand Alone Forms: [facility] Info Instructions
--- NOTE | 2024-11-09 18:29 | CRLHL7_ITS ---
For Patients: As a result of the Century Cures Act, medical imaging exams and procedure reports are released immediately into your electronic medical record. You may view this report before your referring provider. If you have questions, please contact your health care provider. Indication: Testicular pain. Technique: Ultrasound of the scrotum and contents. Sonographic richardson-scale images were obtained with spectral and color Doppler waveform and spectral waveform analysis of the testicles. Comparison: None. Findings: Both testicles are normal in size and echotexture. No masses. No suspicious calcifications. Arterial and venous color Doppler blood flow and spectral waveforms are present in both testicles. Epididymis: Tiny 5 millimeter left epididymal head cyst. Adjacent tiny 3 millimeter epididymal appendix. Normal blood flow. Other: Small left-sided hydrocele. No sign of varicocele. Scrotal wall is normal. Impression: Small left-sided hydrocele, likely reactive. Otherwise, no sign of torsion or inflammation. Dictated by Siva Fernando MD @ 11/09/2024 8:17:05 PM (Electronically Signed)
[2024-11-09 18:52] LABS: Lactate* 1.3 mmol/L (0.5-1.9)
[2024-11-09 18:58] LABS: Hematocrit 42.3 % (37.0-53.0); Hemoglobin* 14.5 gm/dL (13.5-17.5); Immature Granulocytes Abs Auto 0.03 K/uL (0.00-0.30); Immature Granulocytes Pct Auto 0.3 %; Lymphocytes Absolute Auto 3.01 K/uL (0.90-2.90); Mean Corpuscular HGB Conc 34 gm/dL (32-36); Mean Corpuscular Hemoglobin 29 pg (26-34); Mean Corpuscular Volume 85 fL (80-100); RDW Coefficient of Variation % 13.2 % (11.5-15.5); Red Blood Count 4.96 m/uL (4.30-5.90); White Blood Count* 9.76 K/uL (4.50-11.00)
[2024-11-09 19:07] LABS: Slide Review Reflex No
[2024-11-09 19:13] LABS: Appearance Urine Clear (Clear)
== END 2024-11-09 21:12 | disposition home or self-care (01) ==
PROVIDERS: Emergency Provider Family Medicine; PCP Family Medicine
DX: N50.811 Right testicular pain (principal)
CPT/HCPCS: 36415; 76870; 81001; 83605; 85025; 93976; 96372; 99284; A9270; J1885